=== PATIENT | male | born 1965 | race Caucasian/White ===

== ENCOUNTER 2017-11-24 12:34 | Emergency (ER) | payer OTHER ==
[~2017-11-24] VITALS: Ht 170.2 cm; Wt 80.7 kg
[2017-11-24 12:48] VITALS: Ht 170.2 cm; Wt 80.7 kg
[2017-11-24 14:09] VITALS: BP 143/95
== END 2017-11-24 14:09 | disposition home or self-care (01) ==
LOC: ED 12:34
DX: B34.9 Viral infection, unspecified (principal); K29.70 Gastritis, unspecified, without bleeding; I10 Essential (primary) hypertension

== ENCOUNTER 2018-01-09 16:41 | Emergency (ER) | payer OTHER ==
[~2018-01-09] VITALS: Ht 170.2 cm; Wt 97.5 kg
[2018-01-09 17:09] VITALS: BP 113/67; Ht 170.2 cm; Wt 97.5 kg
== END 2018-01-09 17:58 | disposition home or self-care (01) ==
LOC: ED 16:41
DX: R11.10 Vomiting, unspecified (principal); R19.7 Diarrhea, unspecified; I10 Essential (primary) hypertension; E78.5 Hyperlipidemia, unspecified; R50.9 Fever, unspecified; R51 Headache; M79.1 Myalgia; E78.00 Pure hypercholesterolemia, unspecified
CPT/HCPCS: Q0162

== ENCOUNTER 2019-09-29 07:40 | Emergency (ER) | payer OTHER ==
[~2019-09-29] VITALS: Ht 170.2 cm; Wt 104.3 kg
[2019-09-29 07:55] VITALS: Ht 170.2 cm; Wt 104.3 kg
[2019-09-29 09:45] VITALS: BP 157/89
== END 2019-09-29 09:45 | disposition home or self-care (01) ==
LOC: ED 07:40
DX: J06.9 Acute upper respiratory infection, unspecified (principal); I10 Essential (primary) hypertension; E78.00 Pure hypercholesterolemia, unspecified